=== PATIENT | male | born 1965 | race Caucasian/White ===

== ENCOUNTER 2020-12-07 21:26 | Emergency (ER) | payer BC, OTHER ==
[2020-12-07] MEDS ORDERED: DIPHTH,PERTUSS(ACELL),TET 0.5 ML DISP.SYRIN IM ONE (21:28)
[2020-12-07 21:49] VITALS: BP 134/98; PULSE 75; TEMP 98.1; BMI 31.9
== END 2020-12-07 22:27 | disposition home or self-care (01) ==
LOC: FER 21:26
PROC: 3E0234Z Introduction of Serum, Toxoid and Vaccine into Muscle, Percutaneous Approach (ICD-10-PCS; principal; 2020-12-07)
PROC: 0HQFXZZ Repair Right Hand Skin, External Approach (ICD-10-PCS; principal; 2020-12-07)
DX: S61.011A Laceration without foreign body of right thumb without damage to nail, initial encounter (principal); W29.8XXA Contact with other powered hand tools and household machinery, initial encounter
CPT/HCPCS: 73140-TC-RT-FY; 90715; 99283-25